=== PATIENT | female | born 1960 | race Caucasian/White ===

== ENCOUNTER 2019-03-06 10:05 | Emergency (ER) | payer BC ==
[2019-03-06 12:09] VITALS: BP 121/82
--- NOTE | 2019-03-06 12:14 | UC ---
Shoulder Pain HPI - HPI Summary HPI Summary: 58 y/o female presents to the urgent care c/o left shoulder pain s/o falling while carrying ski gear up the steps yesterday. pt reports she hyperextend her left shoulder. She woke up w/ limited ROM due to pain. Paiful to raise her shoulder 6/10 w/o any radiation. At rest pain is 2/10 and she can move elbow and wrist w/o any difficulty. She has not taken any medication or applied ice. She denies any previous injury, numbness or tingling sensation over the left extremities or weakness, SOB, chest pain,abdominal pain, N/V/D - History of Current Complaint Chief Complaint: UCUpperExtremity Stated Complaint: S/P FALL LEFT SHOULDER/ARM Time Seen by Provider: 03/06/19 12:13 Hx Obtained From: Patient ?: No - menopausal Onset/Duration: Sudden Onset, Lasting Days - 1 day, Still Present, Worse Since - today Timing: Constant Severity Initially: Moderate Severity Currently: Moderate Location Of Pain: Is Discrete @ - left shoulder Pain Intensity: 6 - movement and 2/10 at rest Pain Scale Used: 0-10 Numeric Character: Sharp Aggravating Factor(s): Movement, Lifting, Abduction Alleviating Factor(s): Rest Associated Signs And Symptoms: Positive: Negative. Negative: Swelling, Redness , Bruising, Numbness/Tingling Related History: Dominant Hand Right - Risk Factors Non-Orthopedic Risk Factor: Negative DVT Risk Factors: Negative Septic Arthritis Risk Factor: Negative - Allergies/Home Medications Allergies/Adverse Reactions: Allergies Allergy/AdvReac Type Severity Reaction Status Date / Time No Known Allergies Allergy Verified 03/06/19 12:09 Home Medications: Home Medications Citalopram TAB* [Celexa TAB*] 20 mg PO DAILY 03/06/19 [History Confirmed ] buPROPion TAB* [Wellbutrin TAB*] 150 mg PO DAILY 03/06/19 [History Confirmed 10/16] PMH/Surg Hx/FS Hx/Imm Hx Previously Healthy: Yes Psychological History: Anxiety, Depression - Surgical History Surgical History: None - Family History Known Family History: Positive: Cardiac Disease - Social History Occupation: Employed Full-time Lives: With Family Alcohol Use: Occasionally Substance Use Type: None Smoking Status (MU): Never Smoked Tobacco Review of Systems All Other Systems Reviewed And Are Negative: Yes Constitutional: Positive: Negative Skin: Positive: Negative Eyes: Positive: Negative ENT: Positive: Negative Respiratory: Positive: Negative Cardiovascular: Positive: Negative Gastrointestinal: Positive: Negative Genitourinary: Positive: Negative Motor: Positive: Negative Neurovascular: Positive: Negative Musculoskeletal: Positive: Decreased ROM - left shoulder, Other: - left shoulder Neurological: Positive: Negative Psychological: Positive: Negative Is Patient Immunocompromised?: No Physical Exam - Summary Physical Exam Summary: Vital Signs Reviewed: Yes GENERAL: Well-Appearing, No Pain Distress, Well-Nourished - female w/o any apparent pain distress Eyes: Positive: Conjunctiva Clear - PERRL,EOMI ENT: Positive: Normal ENT inspection, Hearing grossly normal, Pharyngeal erythema - mild, Nasal drainage - clear, Uvula midline Neck: Positive: Supple, Nontender, No Lymphadenopathy Respiratory: Positive: Chest non-tender, Lungs clear, Normal breath sounds, No respiratory distress Cardiovascular: Positive: RRR, No Murmur, Pulses Normal, Brisk Capillary Refill Abdomen Description: Positive: Nontender, No Organomegaly, Soft. Negative: CVA Tenderness (R), CVA Tenderness (L) Bowel Sounds: Positive: Present Musculoskeletal: LF shoulder: The L shoulder is with/without obvious asymmetry or deformity when compared to the R shoulder. posterior shoulder w/ ecchymosis and bruising, no crepitus. No bony deformity or prominence of humeral head. No erythema, warmth. No Point Tenderness to palpation over the clavicle, or scapula. positive tenderness over Acromioclavicular joint and humeral head with mild swelling, NT to palpation of the bicipital groove . NT to palpation of the muscles of the sternocleidomastoid, pectoralis, biceps/triceps, deltoid, trapezius, . Limited ROM due to pain especially in adduction and abduction.on both passive and active, internal/external rotation, flexion/extension. "empty can and drop arm test unable to perform due to pain. No axillary tenderness or lymphadenopathy. Normal sensation over the deltoid and fingers. Distal motor and neurovascular status is intact. Neurological Exam: Normal Psychological Exam: Normal Skin Exam: Normal Triage Information Reviewed: Yes Vital Signs: Initial Vital Signs Temp 98.5 F 03/06/19 12:02 Pulse 73 03/06/19 12:02 Resp 18 03/06/19 12:02 BP 121/82 03/06/19 12:02 Pulse Ox 97 03/06/19 12:02 Shoulder Course/Dx - Course Course Of Treatment: 58 y/o female presents to the urgent care c/o left shoulder pain s/o falling while carrying ski gear up the steps yesterday. pt reports she hyperextend her left shoulder. She woke up w/ limited ROM due to pain. Paiful to raise her shoulder 6/10 w/o any radiation. At rest pain is 2/10 and she can move elbow and wrist w/o any difficulty. She has not taken any medication or applied ice. She denies any previous injury, numbness or tingling sensation over the left extremities or weakness, SOB, chest pain,abdominal pain, N/V/D. Hx obtained. LF shoulder X-ray ordered: Impression: IMPRESSION: 1. No fracture identified 2. Mild acromioclavicular osteoarthropathy. Pt's Rx Naproxen PO as directed below and given the first dose here at the clinic by the nurse to alleviate symptoms. Shoulder immobilized with a shoulder sling for 2-3 days. Advised to f/u with Orthopedic from Sports Medicine referral in 3 days if not improvement of symptoms.D/c instructions explained. Pt understood and agreed w/ plan of care. - Differential Dx/Diagnosis Differential Diagnosis/HQI/PQRI: AC Separation, Arthritis, Contusion, Fracture ( Closed), Rotator Cuff Injury, Sprain, Strain, Tendonitis Provider Diagnosis: Injury of left shoulder, Sprain of left shoulder, Osteoarthritis of left shoulder Discharge ED - Sign-Out/Discharge Documenting (check all that apply): Patient Departure - D/c home All imaging exams completed and their final reports reviewed: Yes - Discharge Plan Condition: Stable Disposition: HOME Prescriptions: Naproxen TAB* [Naprosyn 250 mg TAB*] 250 mg PO Q8H PRN #30 tab PRN Reason: moderate pain Patient Education Materials: Osteoarthritis (ED), Shoulder Sprain (ED) Referrals: [facility] [facility] [Outside] - 3 Days Sports Medicine Athletic [facility] [Provider Group] - 3 Days Additional Instructions: 1-Please take medications as directed to alleviate pain and swelling. 2-Please apply ice, keep your shoulder immobilized with the shoulder sling for 3 -4 days and then resume movement slowly as directed 3- Please f/u with Orthopedic from Sports Medicine in 3 days if not improvement of symptoms for further evaluation and treatment. - Billing Disposition and Condition Condition: STABLE Disposition: Home
[2019-03-06] MEDS ORDERED: Naproxen TAB* 250 MG PO ONE (12:32)
== END 2019-03-06 13:33 | disposition home or self-care (01) ==
LOC: UCCORT 10:05
DX: M17.12 Unilateral primary osteoarthritis, left knee (principal); S43.402A Unspecified sprain of left shoulder joint, initial encounter; S49.92XA Unspecified injury of left shoulder and upper arm, initial encounter; F41.9 Anxiety disorder, unspecified; F32.9 Major depressive disorder, single episode, unspecified; M19.012 Primary osteoarthritis, left shoulder; Z79.899 Other long term (current) drug therapy; W10.9XXA Fall (on) (from) unspecified stairs and steps, initial encounter; Y92.9 Unspecified place or not applicable
CPT/HCPCS: 99203; A9270-GY; G0463